=== PATIENT | female | born 1980 | race Caucasian/White ===

== ENCOUNTER → 2017-02-06 | Outpatient (CLI) | payer OTHER ==
[~2017-02-06] MED LIST: ADVAIR 500-501 EACH IH; ADVAIR 500/501 DISK IH; ALBUTEROL17 G1 IH; ALPRAZOLAM0.25 MG PO; ASMANEX HFA13 GM IH; ASMANEX TW200 MICRO1 IH; ASPIR 8181 M1 PO; ATROVENT 00.5 MG/2.5 IH; AUGMENTIN875 MG PO; BACTRIM,SEPT1 TABLET PO; BENTYL20 MG PO; CARDIZEM CD120 MG PO; CARDIZEM120 MG PO; CENTRUM SILVER1 EAC3 PO; CENTRUM SILVER1 EACH PO; COMBIVENT RESPIM4 GM IH; COMBIVENT200 INHALA IH; COZAAR100 MG PO; CYANOCOBALAM1000 MCG PO; DAILY VALUE1 EACH PO; FLAGYL500 MG PO; FLOVENT 44120 INHALA IH; FOLIC ACID1 MG PO; GABAPENTIN300 MG PO; HYCODAN SYRUP480 ML PO; ISOSORBIDE MONO60 MG PO; MEDROL DOSEPAK4 MG PO; METAMUCIL PACKE1 PKT PO; METAMUCIL0.52 GM PO; METOPROLOL TART25 MG PO; NEURONTIN600 MG PO; NITROSTAT0.4 MG SL; NORVASC5 MG PO; NYSTATIN100000 UN1 PO; PERCOCET 5/31 TABLET PO; PREDNISONE10 MG PO; PREDNISONE50 MG PO; PRILOSEC40 MG PO; PROAIR HFA8.5 GM IH; PROBIOTIC & AC1 EACH PO; PROTONIX40 MG PO; PROVENTIL HFA6.7 GM IH; PROVENTIL,2.5 MG/3 M IH; PROVENTIL2.5 MG/3 M IH; RANEXA500 MG PO; ROBITUSSIN AC,T10 ML PO; SENNA8.6 MG PO; SINGULAIR10 MG PO; SUPER B COM1 CAPSULE PO; TAMIFLU75 MG PO; TESSALON PERLE100 MG PO; THEO-DUR,THEOC300 MG PO; THEOPHYLLINE A200 M1 PO; TOPAMAX100 MG PO; TOPAMAX50 MG PO; TOPROL XL50 MG PO; TRAMADOL HCL50 MG; TRAMADOL HCL50 MG PO; TRAZODONE HCL150 MG PO; TRAZODONE HCL50 MG PO; ULTRAM50 MG PO; VENTOLIN HFA18 GM IH; VITAMIN B COMP1 EACH PO; VITAMIN B-12; VITAMIN D2000 UNI1 PO; VITAMIN D250000 UNIT PO; XANAX0.5 MG PO; XARELTO20 MG PO; ZESTRIL,PRINIV2.5 MG; ZESTRIL,PRINIVI10 M1 PO; ZITHROMAX Z-PA250 MG PO; ZOFRAN4 MG PO
== END | disposition home or self-care (01) ==
LOC: NUC 06:31
DX: K31.84 Gastroparesis (principal)
CPT/HCPCS: 78264; A9541

== ENCOUNTER 2017-07-12 13:39 | Observation (INO) | payer OTHER ==
[~2017-07-12] VITALS: Ht 142.2 cm; Wt 98.2 kg
[2017-07-12 15:02] LABS: EOSINOPHIL (%) 1.2 % (0-5); EOSINOPHIL COUNT 0.1 K/uL (0-0.3); HEMATOCRIT 39.6 % (36.0-46.0); IMMATURE GRANULOCYTE (%) 0.3 % (0.0-0.7); INSTRUMENT ABS NEUTROPHIL CT 5.8 K/uL; LYMPHOCYTE COUNT 2.6 K/uL (1.0-2.8); MCH 29.6 PG (29.0-34.0); MCHC 32.1 G/DL (30.0-36.0); MCV 92.3 FL (83-99); MONOCYTE (%) 7.4 % (3-12); MONOCYTE COUNT 0.7 K/uL (0-0.8); NEUTROPHIL (%) 62.4 % (45-76); NEUTROPHIL COUNT 5.8 K/uL (1.8-6.4); RBC DIS.WIDTH-SD 43.9 % (39-53); RED BLOOD COUNT 4.29 M/uL (3.80-5.20); WHITE BLOOD COUNT 9.3 K/uL (4.1-10.2)
[2017-07-12 15:14] LABS: CHLORIDE 111 mEq/L (99-109); POTASSIUM 4.2 mEq/L (3.7-5.4); SODIUM 140 mEq/L (136-147)
[2017-07-12 15:16] LABS: GLUCOSE 76 mg/dL (70-99)
[2017-07-12 15:18] LABS: ANION GAP 10 MEQ/L (2-14); TOTAL BILIRUBIN 0.2 mg/dL (0.0-1.0)
[2017-07-12 15:20] LABS: ALKALINE PHOSPHATASE 39 IU/L (3-129); GFR ESTIMATE (CALCULATED) > 59 mL/min/
[2017-07-12 15:21] LABS: UREA NITROGEN (BUN) 14 mg/dL (9-23)
[2017-07-12 15:22] LABS: DIRECT BILIRUBIN 0.1 mg/dL (0.0-0.3)
[2017-07-12 15:23] LABS: LIPASE 20 U/L (1.0-51.0)
[2017-07-12 15:29] LABS: TROP-I INTERPRETATION NEGATIVE; TROPONIN-I 0.01 ng/mL (0.0-0.30)
[2017-07-12 15:47] LABS: ABS NEUTROPHIL COUNT 5.8; ANISOCYTOSIS 1+; ATYPICAL LYMPHOCYTE 1.7 %; BAND NEUTROPHILS 1.7 % (0-8.0); BURR CELLS 1+; EOSINOPHIL ABS CT 0.1; EOSINOPHILS 0.9 % (0-5.0); GIANT PLATELETS 1+; LYMPHOCYTES 24.4 % (15.0-45.0); MEAN PLAT.VOLUME 10.8 uM^3 (9.5-12.4); MICROCYTOSIS 1+; OVALOCYTES 2+; PLAT.SUFFICIENCY ADEQUATE; PLATELET COUNT 219 K/uL (156-360); POIKILOCYTOSIS 1+; SEG.NEUTROPHILS 60.9 % (46.0-76.0)
[2017-07-12 15:56] LABS: INTER. NORMALIZED RATIO 1.2; PROTHROMBIN TIME 13.1 SEC (10.2-12.9)
[2017-07-12 15:59] LABS: PTT 27.5 SEC (25-37)
[2017-07-12 17:55] LABS: TROP-I INTERPRETATION NEGATIVE; TROPONIN-I 0.02 ng/mL (0.0-0.30)
[2017-07-12 19:14] LABS: ADD MIUA? YES; BILIRUBIN NEGATIVE; BLOOD NEGATIVE; COLOR YELLOW ((YELLOW)); GLUCOSE (STRIP) NEGATIVE; KETONES NEGATIVE; LEUKOCYTES NEGATIVE; NITRITE NEGATIVE; PROTEIN (STRIP) NEGATIVE; SPECIFIC GRAVITY 1.014 (1.000-1.030); UROBILINOGEN 0.2 MG/DL (0.2-1.0)
[2017-07-12] MEDS ORDERED: ULTRAM50 MG PO (19:26)
[2017-07-12] MEDS ORDERED: EFFEXOR XR150 MG PO (19:27)
[2017-07-12] MEDS ORDERED: TOPAMAX200 MG PO (19:28)
[2017-07-12 19:29] LABS: BACTERIA NONE SEEN /HPF; EPITHELIAL CELLS RARE /HPF; MUCUS TRACE /LPF; RED BLOOD CELLS NONE SEEN /HPF (0-5); UCUL ADDED? NO; WHITE BLOOD CELLS 0-5 /HPF (0-5)
[2017-07-12] MEDS ORDERED: ALBUTEROL2.5 MG/3 M IH (19:41)
[2017-07-12] MEDS ORDERED: BREO ELLIPTA I1 EACH IH (19:42)
[2017-07-12] MEDS ORDERED: NITROGLYCERIN0.4 MG SL (19:44)
[2017-07-12] MEDS ORDERED: LINZESS145 MCG PO (19:45)
[2017-07-12 20:19] VITALS: BP 138/75
[2017-07-12 23:58] LABS: TROP-I INTERPRETATION NEGATIVE; TROPONIN-I 0.01 ng/mL (0.0-0.30)
[2017-07-13 00:18] VITALS: BP 98/55
[2017-07-13 03:56] VITALS: BP 97/48
[2017-07-13 05:49] LABS: TROP-I INTERPRETATION NEGATIVE; TROPONIN-I 0.02 ng/mL (0.0-0.30)
[2017-07-13 07:46] VITALS: BP 121/63
[2017-07-13 12:02] VITALS: BP 157/71
== END 2017-07-13 13:20 | disposition home or self-care (01) ==
LOC: EME 13:39 → EDOF 18:52 → 5WEST 18:52 → ENRESERV 18:54 → 5WEST 19:40
PROVIDERS: Emergency Medicine; Nurse Practitioner Family
DX: R07.9 Chest pain, unspecified (principal); I10 Essential (primary) hypertension; E66.01 Morbid (severe) obesity due to excess calories; Z68.42 Body mass index [BMI] 45.0-49.9, adult; F41.9 Anxiety disorder, unspecified; G47.30 Sleep apnea, unspecified; J45.909 Unspecified asthma, uncomplicated; G89.29 Other chronic pain; Z86.73 Personal history of transient ischemic attack (TIA), and cerebral infarction without residual deficits; Z87.01 Personal history of pneumonia (recurrent); Z90.49 Acquired absence of other specified parts of digestive tract; Z88.8 Allergy status to other drugs, medicaments and biological substances
CPT/HCPCS: 71020; 80048; 80076; 81003; 83690; 83880; 84484; 85025; 85610; 85730; 93005; 94640; 94640 76; 99202; 99281; 99285; G0378; J2270

== ENCOUNTER 2017-10-01 16:11 | Inpatient (IN) | payer OTHER ==
[~2017-10-01] VITALS: Ht 142.2 cm; Wt 97.0 kg
[~2017-10-01 16:11] MED LIST changes: +ALBUTEROL2.5 MG/3 M IH; +BREO ELLIPTA I1 EACH IH; +EFFEXOR XR150 MG PO; +LINZESS145 MCG PO; +NITROGLYCERIN0.4 MG SL; +TOPAMAX200 MG PO
[2017-10-01 17:59] LABS: HEMATOCRIT 42.7 % (36.0-46.0); HEMOGLOBIN 14.4 G/DL (11.9-15.5); MCH 30.3 PG (29.0-34.0); MCHC 33.7 G/DL (30.0-36.0); MCV 89.7 FL (83-99); PLATELET COUNT 343 K/uL (156-360); RBC DIS.WIDTH-CV 12.5 % (11.8-14.6); RBC DIS.WIDTH-SD 41.1 % (39-53); RED BLOOD COUNT 4.76 M/uL (3.80-5.20); WHITE BLOOD COUNT 13.8 K/uL (4.1-10.2)
[2017-10-01 18:07] LABS: ALBUMIN 4.6 g/dL (3.2-4.8); CHLORIDE 109 mEq/L (99-109); POTASSIUM 3.5 mEq/L (3.7-5.4); SODIUM 141 mEq/L (136-147)
[2017-10-01 18:09] LABS: GLUCOSE 94 mg/dL (70-99)
[2017-10-01 18:11] LABS: TOTAL BILIRUBIN 0.4 mg/dL (0.0-1.0)
[2017-10-01 18:13] LABS: ALKALINE PHOSPHATASE 50 IU/L (3-129); CREATININE 0.8 mg/dL (0.6-1.3); GFR ESTIMATE (CALCULATED) > 59 mL/min/
[2017-10-01 18:14] LABS: UREA NITROGEN (BUN) 9 mg/dL (9-23)
[2017-10-01 18:15] LABS: AST (GOT) 11 IU/L (2-34)
[2017-10-01 18:16] LABS: ALT (GPT) 15 IU/L (3-49)
[2017-10-01 18:18] LABS: TROP-I INTERPRETATION NEGATIVE; TROPONIN-I < 0.01 ng/mL (0.0-0.30)
[2017-10-01 18:22] LABS: QUANTITATIVE HCG < 4.0 MIU/ML
[2017-10-01 18:27] LABS: TOTAL PROTEIN 7.3 G/DL (6.4-8.3)
[2017-10-01] MEDS ORDERED: AMBIEN5 MG PO (20:04)
[2017-10-01] MEDS ORDERED: TYLENOL EXTRA500 MG PO (20:04)
[2017-10-01] MEDS ORDERED: EFFEXOR XR75 MG PO (20:05)
[2017-10-02 08:59] LABS: BASOPHIL (%) 0.3 % (0-1); EOSINOPHIL (%) 1.9 % (0-5); EOSINOPHIL COUNT 0.2 K/uL (0-0.3); HEMATOCRIT 40.6 % (36.0-46.0); HEMOGLOBIN 13.8 G/DL (11.9-15.5); IMMATURE GRANULOCYTE (%) 0.7 % (0.0-0.7); LYMPHOCYTE (%) 20.6 % (15-42); LYMPHOCYTE COUNT 2.4 K/uL (1.0-2.8); MCH 30.3 PG (29.0-34.0); MONOCYTE (%) 6.9 % (3-12); MONOCYTE COUNT 0.8 K/uL (0-0.8); NEUTROPHIL (%) 69.6 % (45-76); PLATELET COUNT 306 K/uL (156-360); RBC DIS.WIDTH-CV 12.5 % (11.8-14.6); RBC DIS.WIDTH-SD 40.9 % (39-53); RED BLOOD COUNT 4.56 M/uL (3.80-5.20); WHITE BLOOD COUNT 11.5 K/uL (4.1-10.2)
[2017-10-02 09:12] LABS: ALBUMIN 4.3 g/dL (3.2-4.8); CHLORIDE 111 mEq/L (99-109); POTASSIUM 3.8 mEq/L (3.7-5.4); SODIUM 138 mEq/L (136-147)
[2017-10-02 09:15] LABS: GLUCOSE 89 mg/dL (70-99); TOTAL PROTEIN 6.9 g/dL (6.4-8.3)
[2017-10-02 09:18] LABS: ALKALINE PHOSPHATASE 52 IU/L (3-129); CREATININE 0.8 mg/dL (0.6-1.3); GFR ESTIMATE (CALCULATED) > 59 mL/min/
[2017-10-02 09:19] LABS: UREA NITROGEN (BUN) 9 mg/dL (9-23)
[2017-10-02 09:20] LABS: AST (GOT) 11 IU/L (2-34); TOTAL BILIRUBIN 0.5 mg/dL (0.0-1.0)
[2017-10-02 09:21] LABS: ALT (GPT) 12 IU/L (3-49)
[2017-10-02 10:06] LABS: HDL CHOLESTEROL 57 MG/DL (Desirable>=50); LDL CHOLESTEROL 130 mg/dL (Desirable<100); NON-HDL CHOLESTEROL 147 mg/dL (Desirable<160); THEOPHYLLINE 6.4 MCG/ML (10-20); TOTAL CHOLESTEROL 204 mg/dL (Desirable<200); TRIGLYCERIDES 85 MG/DL (Normal: <150)
[2017-10-02 14:29] VITALS: BP 126/69
[2017-10-02 20:03] VITALS: BP 120/67
[2017-10-03 00:21] VITALS: BP 115/63
[2017-10-03 08:49] VITALS: BP 132/75
[2017-10-03 12:00] VITALS: BP 115/66
[2017-10-03] MEDS ORDERED: ADULT ASPIRIN R81 MG PO (13:12)
[2017-10-03] MEDS ORDERED: PRAVACHOL10 MG PO (13:12)
[2017-10-03 16:00] VITALS: BP 128/71
== END 2017-10-03 18:30 | disposition home or self-care (01) | DRG 69 ==
LOC: EME 16:11 → EDOF 21:22 → ENRESERV 21:23 → 5SOUTH 10-02 14:01 → ENPENDDIS 10-03 → 5SOUTH 10-03 18:30
PROVIDERS: Internal Medicine; Physician Assistant
DX: G45.9 Transient cerebral ischemic attack, unspecified (principal); R29.704 NIHSS score 4; D72.829 Elevated white blood cell count, unspecified; I10 Essential (primary) hypertension; J45.909 Unspecified asthma, uncomplicated; K21.9 Gastro-esophageal reflux disease without esophagitis; E87.6 Hypokalemia; G47.33 Obstructive sleep apnea (adult) (pediatric); G47.00 Insomnia, unspecified; F43.10 Post-traumatic stress disorder, unspecified; F32.9 Major depressive disorder, single episode, unspecified; G43.909 Migraine, unspecified, not intractable, without status migrainosus; M46.96 Unspecified inflammatory spondylopathy, lumbar region; M51.9 Unspecified thoracic, thoracolumbar and lumbosacral intervertebral disc disorder; R26.9 Unspecified abnormalities of gait and mobility; E66.9 Obesity, unspecified; Z68.42 Body mass index [BMI] 45.0-49.9, adult; Z86.73 Personal history of transient ischemic attack (TIA), and cerebral infarction without residual deficits; Z87.442 Personal history of urinary calculi
CPT/HCPCS: 70450; 70551; 80053; 80061; 80198; 83036; 84484; 84702; 85025; 85027; 93005; 94640; 94640 76; 99202; 99281; 99285

== ENCOUNTER 2018-04-06 16:20 | Emergency (ER) | payer OTHER ==
[~2018-04-06] VITALS: Ht 142.2 cm; Wt 108.2 kg
[~2018-04-06 16:20] MED LIST changes: +ADULT ASPIRIN R81 MG PO; +AMBIEN5 MG PO; +EFFEXOR XR75 MG PO; +PRAVACHOL10 MG PO; +TYLENOL EXTRA500 MG PO
[2018-04-06 17:00] LABS: HEMATOCRIT 37.7 % (36.0-46.0); HEMOGLOBIN 13.2 G/DL (11.9-15.5); MCH 30.6 PG (29.0-34.0); MCV 87.3 FL (83-99); PLATELET COUNT 333 K/uL (156-360); RED BLOOD COUNT 4.32 M/uL (3.80-5.20); WHITE BLOOD COUNT 14.6 K/uL (4.1-10.2)
[2018-04-06 17:08] LABS: CHLORIDE 114 mEq/L (99-109); POTASSIUM 3.8 mEq/L (3.7-5.4); SODIUM 143 mEq/L (136-147)
[2018-04-06 17:10] LABS: GLUCOSE 100 mg/dL (70-99)
[2018-04-06 17:14] LABS: CREATININE 0.9 mg/dL (0.6-1.3); GFR ESTIMATE (CALCULATED) > 59 mL/min/
[2018-04-06 17:15] LABS: UREA NITROGEN (BUN) 12 mg/dL (9-23)
[2018-04-06 17:20] LABS: TROP-I INTERPRETATION NEGATIVE; TROPONIN-I < 0.01 ng/mL (0.0-0.30)
[2018-04-06 19:33] LABS: D-DIMER ELISA < 150.00 ng/mLDDU (<230)
[2018-04-06 21:03] LABS: TROP-I INTERPRETATION NEGATIVE; TROPONIN-I < 0.01 ng/mL (0.0-0.30)
[2018-04-06] MEDS ORDERED: NORCO 10/3251 TABLET PO (21:35)
[2018-04-06 21:47] VITALS: BP 110/65
== END 2018-04-06 21:47 | disposition home or self-care (01) ==
LOC: EME 16:20
PROVIDERS: Emergency Medicine
DX: R07.9 Chest pain, unspecified (principal); J45.909 Unspecified asthma, uncomplicated; I10 Essential (primary) hypertension; G47.30 Sleep apnea, unspecified; F41.9 Anxiety disorder, unspecified; F32.9 Major depressive disorder, single episode, unspecified; Z79.51 Long term (current) use of inhaled steroids; Z87.01 Personal history of pneumonia (recurrent); Z86.73 Personal history of transient ischemic attack (TIA), and cerebral infarction without residual deficits; Z87.442 Personal history of urinary calculi; Z90.49 Acquired absence of other specified parts of digestive tract; Z88.1 Allergy status to other antibiotic agents; Z88.8 Allergy status to other drugs, medicaments and biological substances; Z91.030 Bee allergy status
CPT/HCPCS: 71046; 80048; 84484; 85027; 85379; 93005; 94640; 99281; 99285; J3010; J7030